=== PATIENT | male | born 1970 ===

== ENCOUNTER 2024-05-08 07:15 | Inpatient (IN) | payer OTHER ==
[~2024-05-08] VITALS: Ht 170.2 cm; Wt 45.2 kg
[2024-05-08] MEDS ORDERED: ATACAND16 MG PO (08:42)
[2024-05-08 08:56] VITALS: BP 157/95
[2024-05-08 09:23] LABS: URINE APPEARANCE Clear; URINE BILIRRUBIN Negative (NEGATIVE); URINE BLOOD Negative; URINE COLOR Yellow; URINE GLUCOSE Negative (NEGATIVE); URINE KETONE Trace (NEGATIVE); URINE LEUKOCYTE Negative; URINE NITRATE Negative; URINE PROTEIN Trace (NEGATIVE)
[2024-05-08 09:26] LABS: URINE EPITHELIAL CELLS 3.7 uL (0.0-38.8); URINE RBC 10.8 uL (0.0-20.8); URINE WBC 4.1 uL (0.0-23.2)
[2024-05-08 09:31] LABS: HEMATOCRIT 38.2 % (39.0-48.0); HEMOGLOBIN 13.7 g/dL (13-16.00); MEAN CELL VOLUME 88.3 fL (80.0-100.00); MEAN CORPUSCULAR HEMOGLOBIN 31.7 pg (27.00-32.0); MEAN CORPUSCULAR HGB CONC 35.8 g/dl (32.0-36.0); PLATELET COUNT 332 K/uL (150-450); RED BLOOD COUNT 4.33 M/uL (4.00-6.00); RED CELL DISTRIBUTION WIDTH 12.6 % (11.5-14.5)
[2024-05-08 09:45] LABS: URINE BACTERIA 2.5 uL (0.0-1933); URINE CAST 0.61 uL (0.0-1.40)
[2024-05-08 10:11] LABS: INR 0.99; PARTIAL THROMBOPLASTIN TIME 25.4 SECONDS (22.0-34.0); PROTHROMBIN TIME 10.8 SECONDS (9.0-11.5)
[2024-05-08 10:19] LABS: CALCIUM 9.5 mg/dL (8.5-10.1); CREATININE SERUM 1.17 mg/dL (0.70-1.30); GFR 64.96; POTASSIUM 3.74 mEq/L (3.5-5.1)
[2024-05-08 10:43] LABS: RH POSITIVE
[2024-05-17] MEDS ORDERED: CEFAZOLIN SODIUM 1,000 MG VIAL IV ONE (09:00)
[2024-05-17] MEDS ORDERED: ENOXAPARIN SODIUM 40 MG/0.4 ML SYRINGE SUBCUTANEO ONE (09:00)
[2024-05-17] MEDS ORDERED: DEXTROSE 5 %-0.45 % SOD CHLORD 1,000 ML IV SCH (16:51)
[2024-05-17] MEDS ORDERED: FAMOtidine 20 MG TABLET PO SCH (17:00)
[2024-05-17] MEDS ORDERED: OxyCODONE HCL/APAP UD (PERCOCET) PO PRN (17:00)
[2024-05-17] MEDS ORDERED: ONDANSETRON HCL 2 MG/ML VIAL IV PRN (17:00)
[2024-05-17] MEDS ORDERED: CEFAZOLIN SODIUM 1,000 MG VIAL IV SCH (17:00)
[2024-05-17] MEDS ORDERED: SIMETHICONE 125 MG CAPSULE PO SCH (17:00)
[2024-05-17] MEDS ORDERED: DOCUSATE SODIUM 100MG CAP PO SCH (17:00)
[2024-05-17] MEDS ORDERED: ONDANSETRON HCL 2 MG/ML VIAL IV ONE (17:55)
[2024-05-18 01:32] VITALS: BP 129/68; O2SAT 94
[2024-05-18 06:55] LABS: HEMATOCRIT 32.8 % (39.0-48.0); HEMOGLOBIN 11.4 g/dL (13-16.00); MEAN CELL VOLUME 92.1 fL (80.0-100.00); MEAN CORPUSCULAR HEMOGLOBIN 31.9 pg (27.00-32.0); MEAN CORPUSCULAR HGB CONC 34.6 g/dl (32.0-36.0); PLATELET COUNT 249 K/uL (150-450); RED BLOOD COUNT 3.56 M/uL (4.00-6.00); RED CELL DISTRIBUTION WIDTH 12.9 % (11.5-14.5)
[2024-05-18 08:00] VITALS: BP 160/95; O2SAT 95
[2024-05-18 08:18] LABS: CALCIUM 8.7 mg/dL (8.5-10.1); CREATININE SERUM 1.1 mg/dL (0.70-1.30); GFR 69.76; POTASSIUM 3.99 mEq/L (3.5-5.1)
[2024-05-18 12:00] VITALS: BP 150/82; O2SAT 95
[2024-05-18] MEDS ORDERED: DIPHENHYDRAMINE HCL 50 MG CAPSULE PO PRN (15:15)
[2024-05-18 16:43] VITALS: BP 178/98; O2SAT 96
[2024-05-18 19:19] VITALS: BP 174/108
[2024-05-18 19:20] VITALS: BP 170/100
[2024-05-18] MEDS ORDERED: ENALAPRILAT DIHYDRATE 1.25 MG/ML VIAL IV STA (21:47)
[2024-05-18] MEDS ORDERED: ENALAPRILAT DIHYDRATE 1.25 MG/ML VIAL IV PRN (22:00)
[2024-05-19 00:51] VITALS: BP 167/99; O2SAT 97
[2024-05-19 08:00] VITALS: BP 170/90; O2SAT 95
[2024-05-19] MEDS ORDERED: AMLODIPINE BESYLATE 5 MG TABLET PO STA (09:48)
[2024-05-19 10:35] LABS: HEMATOCRIT 32.3 % (39.0-48.0); HEMOGLOBIN 11.2 g/dL (13-16.00); MEAN CELL VOLUME 91.4 fL (80.0-100.00); MEAN CORPUSCULAR HEMOGLOBIN 31.8 pg (27.00-32.0); MEAN CORPUSCULAR HGB CONC 34.8 g/dl (32.0-36.0); PLATELET COUNT 279 K/uL (150-450); RED BLOOD COUNT 3.53 M/uL (4.00-6.00); RED CELL DISTRIBUTION WIDTH 13.1 % (11.5-14.5)
[2024-05-19] MEDS ORDERED: CANDESARTAN CILEXETIL 16 MG TABLET PO NR (10:40)
[2024-05-19 10:56] LABS: CALCIUM 8.3 mg/dL (8.5-10.1); CREATININE SERUM 0.93 mg/dL (0.70-1.30); GFR 84.67; POTASSIUM 3.23 mEq/L (3.5-5.1)
[2024-05-19 12:00] VITALS: BP 160/90; O2SAT 97
[2024-05-20] MEDS ORDERED: AMLODIPINE BESYLATE 5 MG TABLET PO SCH (09:00)
[2024-05-20] MEDS ORDERED: CANDESARTAN CILEXETIL 16 MG TABLET PO SCH (09:00)
== END 2024-05-19 15:34 | disposition home or self-care (01) | DRG 708 ==
LOC: O/R 05-17 05:30 → SURH 05-17 07:00 → O/R 05-17 16:45 → SURH 05-17 17:12
PROVIDERS: ADMIT Urology; ATTEND Urology
PROC: 07BC4ZZ Excision of Pelvis Lymphatic, Percutaneous Endoscopic Approach (ICD-10-PCS; 2024-05-17)
PROC: 8E0W4CZ Robotic Assisted Procedure of Trunk Region, Percutaneous Endoscopic Approach (ICD-10-PCS; 2024-05-17)
PROC: 0VT04ZZ Resection of Prostate, Percutaneous Endoscopic Approach (ICD-10-PCS; principal; 2024-05-17 07:00)
DX: C61 Malignant neoplasm of prostate (principal); R59.0 Localized enlarged lymph nodes; D64.89 Other specified anemias; I10 Essential (primary) hypertension